=== PATIENT | male | born 1995 | race Caucasian/White ===

== ENCOUNTER 2024-04-18 12:29 | Emergency (ER) | payer OTHER, SELFPAY ==
[2024-04-18 12:34] VITALS: BP 152/82; PULSE 69; TEMP 36.7; O2SAT 96; BMI 35.3
--- NOTE | 2024-04-18 12:53 | XR_ITS ---
[facility] [id number] Patient Name: DUSTY STEIN MRN: [id number] date: 1995 Sex: M Assigned Patient Location: ED.MAIN Current Patient Location: ER Accession/Order Number: [id number] Exam Date: 04/18/2024 12:55 Report Date: 04/18/2024 13:08 At the request of: VAL GLEASON Procedure: XR chest 2V EXAM: XR chest 2V HISTORY: cough COMPARISON: None. TECHNIQUE: PA and lateral views of the chest performed. FINDINGS: The trachea is midline. The heart size is normal. The cardiomediastinal silhouette and hilar shadows are normal. There is no consolidation, pleural effusion or pulmonary vascular congestion. There is no pneumothorax or osseous abnormality. XR/XR chest 2V IMPRESSION: Unremarkable PA and lateral views of the chest. Electronically authenticated by: ROX MUJICA Date: 04/18/2024 13:08
--- NOTE | 2024-04-18 12:53 | ED_ITS ---
HPI HPI - General Adult General Chief complaint: Upper Respiratory Infection Stated complaint: URTI COMPLAINTS Time Seen by Provider: 04/18/24 12:37 Source: patient Mode of arrival: walk-in History of Present Illness HPI narrative: Patient presenting to the emergency department for evaluation cough. Patient states that he had a cough for the last several weeks. Approximately 1 month. Intermittent, no sputum production. No fevers, chills. States that he feels lethargic. When asked to quantify what that means, states that he just does not feel well. Is not unresponsive, is not flaccid, does not appear to have objective lethargy symptoms, but patient uses the word lethargic to explain that he just means he does not feel well. States that he is taken 2 home COVID tests weeks after symptoms worsen or if there is some sort of antibiotic he needs to be on. Is not having any fevers, chills. No other complaints at this time. No chest pain, difficulty breathing. Related Data Allergies Allergy/AdvReac Type Severity Reaction Status Date / Time No Known Drug Allergies Allergy Verified 04/18/24 12:36 Opioid HPI Opioid Management Most Recent Opioid Data: No Data to Display Review of Systems ROS Narrative Negative unless otherwise stated in HPI Exam Narrative Exam Narrative: General: NAD, AAOx3, no distress Eyes: PERRL, EOMI, lids/conjunctiva normal. HEENT: NCAT, mmm Respiratory: respiratory effort normal, speaks in full sentences, no tripod position, no accessory muscle use. Lungs clear to auscultation without rhonchi, wheezes, rales Cardiac: Regular rate and rhythm, no edema, regular s1/s2, no m/g/r Constitutional Vital Signs, click to edit/add: Last Vital Signs Temp 98.0 F 04/18/24 12:34 Pulse 69 04/18/24 12:34 Resp 16 04/18/24 12:34 BP 152/82 H 04/18/24 12:34 Pulse Ox 96 04/18/24 12:34 O2 Del Method Room Air 04/18/24 12:34 Course Vital Signs Vital signs: Vital Signs Temperature 98.0 F 04/18/24 12:34 Pulse Rate 69 04/18/24 12:34 Respiratory Rate 16 04/18/24 12:34 Blood Pressure 152/82 H 04/18/24 12:34 Pulse Oximetry 96 04/18/24 12:34 Oxygen Delivery Method Room Air 04/18/24 12:34 Temperature 98.0 F 04/18/24 12:34 Pulse Rate 69 04/18/24 12:34 Respiratory Rate 16 04/18/24 12:34 Blood Pressure 152/82 H 04/18/24 12:34 Pulse Oximetry 96 04/18/24 12:34 Oxygen Delivery Method Room Air 04/18/24 12:34 Medical Decision Making MDM Narrative Medical decision making narrative: Advanced guidance has been given. Vss, pex is benign at this time. Pt to fu with pcp 1-2 days for reeval, rter should sx worsen, persist or become worrysome in any way. All incidental laboratory studies, EKG, radiologic findings have been noted and discussed with patient. Patient was reevaluated with a benign exam at this time. Pt expressed understanding and agreement with plan of care at this time. Will fu as planned. Pt stable for discharge. Discharge Plan Discharge Chief Complaint: Upper Respiratory Infection Clinical Impression: Cough Patient Disposition: Home, Self-Care Time of Disposition Decision: 13:35 Print Language: Bel[place]ian Instructions: Chronic Cough (ED) Additional Instructions: Follow-up with your PCP in the next 1 to 2 days. Return to the emergency department should symptoms worsen or become worrisome in any way. Referrals: Physician,Non-Staff, MD [Primary Care Provider] - 1 week
== END 2024-04-18 13:44 | disposition home or self-care (01) ==
PROVIDERS: Emergency Provider Emergency Medicine
DX: R05.9 Cough, unspecified (principal)
CPT/HCPCS: 71046; 99283